=== PATIENT | male | born 1960 | race Caucasian/White ===

== ENCOUNTER 2022-09-14 11:14 | Inpatient (IN) | payer MEDICARE ==
[~2022-09-14] VITALS: Ht 170.2 cm; Wt 70.0 kg
[2022-09-14 11:38] LABS: BASOPHILS # (AUTO) 0.1 X10'3 (0-0.2); BASOPHILS % (AUTO) 0.4 % (0-1); EOSINOPHILS % (AUTO) 0.1 % (0-6); HEMOGLOBIN 11.8 g/dl (14.0-17.9); LYMPHOCYTES # (AUTO) 0.7 X10'3 (1.1-4.8); MEAN CORPUSCULAR HGB CONC 33.1 g/dL (33.0-36.5)
[2022-09-14 11:39] LABS: CLARITY,URINE CLEAR (Clear); GLUCOSE, URINE >=1000 mg/dl (Neg); KETONES,URINE TRACE mg/dl (Neg); LEUKOCYTE ESTERASE ,URINE NEGATIVE (Neg); NITRITES, URINE NEGATIVE (Neg); OCCULT BLOOD,URINE TRACE-INTACT (Neg); PH,URINE 5.5 (4.8-8.0); PROTEIN,URINE NEGATIVE (Neg); UROBILINOGEN,URINE 0.2 E.U/dL (0.2-1.0)
[2022-09-14 11:41] LABS: COLOR,URINE STRAW (Yellow); UA COLLECTION TYPE CLN CATCH MIDSTREAM
[2022-09-14 11:41] LABS: HEMATOCRIT 35.6 % (42.0-52.0); LYMPHOCYTES % (AUTO) 3.2 % (21-51); MEAN CORPUSCULAR HEMOGLOBIN 29.4 PG (27.0-31.0); MEAN CORPUSCULAR VOLUME 88.9 FL (78-98); MONOCYTES # (AUTO) 1.8 X10'3 (0-0.9); MONOCYTES % (AUTO) 8.8 % (2-12); NEUTROPHILS # (AUTO) 17.8 X10'3 (1.8-7.7); NEUTROPHILS % (AUTO) 87.5 % (42-75); PLATELET COUNT 240 X10'3 (140-440); RED CELL DISTRIBUTION WIDTH 14.3 % (11.5-14.5); WHITE BLOOD COUNT 20.3 X10'3 (4.5-11.0)
[2022-09-14 11:46] LABS: BACTERIA,URINE FEW /HPF (Neg); RBC,URINE 0-2 /HPF (0-2); SQUAMOUS EPITHELIAL CELL,UR FEW /LPF (FEW); WBC,URINE 0-4 /HPF (0-4)
[2022-09-14 12:26] LABS: ALANINE AMINOTRANSFERASE 16 U/L (12-78); ALBUMIN 2.7 G/DL (3.4-5.0); ALBUMIN/GLOBULIN RATIO 0.7 (1.1-1.5); ALKALINE PHOSPHATASE 145 IU/L (46-116); ANION GAP 11 (8-16); ASPARTATE AMINO TRANSFERASE 15 U/L (10-37); BILIRUBIN,TOTAL 0.4 MG/DL (0.1-1.0); BLOOD UREA NITROGEN 79 MG/DL (7-18); BUN/CREATININE RATIO 44.4 (5.4-32.0); CALCIUM 8.8 MG/DL (8.5-10.1); CHLORIDE 81 MMOL/L (99-107); CREATININE 1.78 MG/DL (0.60-1.10); LIPASE 284 U/L (73-393); POTASSIUM 4.8 MMOL/L (3.5-5.1); TOTAL CARBON DIOXIDE 27.6 MMOL/L (24-32); TOTAL PROTEIN 6.8 G/DL (6.4-8.2); eGFR 39 ML/MIN
[2022-09-14 12:32] LABS: SODIUM 120 MMOL/L (135-145)
[2022-09-14 12:57] LABS: GLUCOSE 910 MG/DL (70-104)
[2022-09-14] MEDS ORDERED: normal saline 1000ml 1,000 ML IV ONE (13:05)
[2022-09-14] MEDS ORDERED: insulin regular, human 10 units/0.1 ml syringe IV ONE (13:05)
[2022-09-14] MEDS ORDERED: pantoprazole 40mg IV 80 MG in normal saline 100ml IV soln 100 ML IV ONE (13:25)
[2022-09-14 14:05] LABS: APTT 22 SECONDS (22-32)
[2022-09-14 14:16] LABS: ETHANOL < 0.010 GM/DL (0.0-0.010)
[2022-09-14] MEDS ORDERED: NO HOME MEDS (15:14)
[2022-09-14 15:36] LABS: ALANINE AMINOTRANSFERASE 14 U/L (12-78); ALBUMIN 2.7 G/DL (3.4-5.0); ALBUMIN/GLOBULIN RATIO 0.7 (1.1-1.5); ALKALINE PHOSPHATASE 140 IU/L (46-116); ANION GAP 11 (8-16); ASPARTATE AMINO TRANSFERASE 9 U/L (10-37); BILIRUBIN,TOTAL 0.4 MG/DL (0.1-1.0); BLOOD UREA NITROGEN 78 MG/DL (7-18); BUN/CREATININE RATIO 44.8 (5.4-32.0); CHLORIDE 89 MMOL/L (99-107); CREATININE 1.74 MG/DL (0.60-1.10); POTASSIUM 3.7 MMOL/L (3.5-5.1); SODIUM 131 MMOL/L (135-145); TOTAL CARBON DIOXIDE 31.3 MMOL/L (24-32); TOTAL PROTEIN 6.8 G/DL (6.4-8.2); eGFR 40 ML/MIN
[2022-09-14] MEDS ORDERED: magnesium 4gm in 100ml NS 100 ML IV PRN (15:45)
[2022-09-14] MEDS ORDERED: glucagon, human recombinant 1mg kit SUBCUT PRN (15:45)
[2022-09-14] MEDS ORDERED: DEXTROSE 15 GM of carb/4 tabs (each vial/BOTTLE has 4 tablets) PO PRN ×2 (15:45)
[2022-09-14] MEDS ORDERED: mag hydrox/Alum hydrox/simeth 30ml oral suspension PO PRN (15:45)
[2022-09-14] MEDS ORDERED: potassium Cl 20 mEq SR tablet PO PRN ×2 (15:45)
[2022-09-14] MEDS ORDERED: dextrose 50%-water 50ml dispensing syringe IV PRN ×2 (15:45)
[2022-09-14] MEDS ORDERED: HYDROcodone/acetaminophen 5mg/325mg tablet PO PRN (15:45)
[2022-09-14] MEDS ORDERED: potassium Cl 40MEQ/1/2NS 520ml 520 ML IV PRN (15:45)
[2022-09-14] MEDS ORDERED: magnesium hydroxide 30ml (MOM) UD suspension PO PRN (15:45)
[2022-09-14] MEDS ORDERED: MESSAGE TO PHARMACY PO ONE (15:45)
[2022-09-14] MEDS ORDERED: acetaminophen 325mg tablet PO PRN ×2 (15:45)
[2022-09-14 16:04] LABS: GLUCOSE 577 MG/DL (70-104)
[2022-09-14] MEDS ORDERED: CefTRIAXone/D5W-Rocephin 1gm 50 ML IV ONE (16:15)
[2022-09-14] MEDS ORDERED: metoclopramide 5 mg/ml inj IV PRN (16:15)
[2022-09-14] MEDS ORDERED: metoprolol tartrate 1mg/ml inj IV ONE ×2 (16:15→22:35)
[2022-09-14] MEDS ORDERED: vancomycin inj 1,000 MG in normal saline 250ml IV soln 250 ML IV ONE (16:15)
[2022-09-14] MEDS: ondansetron/PF 4mg/2ml inj IV PRN ×2 (16:24→23:02)
[2022-09-14] MEDS: normal saline 1000ml 1,000 ML IV SCH (16:25)
[2022-09-14] MEDS: pantoprazole 40MG/NS 100ML BAG 100 ML IV SCH ×2 (16:25→21:30)
[2022-09-14] MEDS: CefTRIAXone/D5W-Rocephin 1gm 50 ML IV SCH (16:50)
[2022-09-14] MEDS ORDERED: vancomycin/NS 1 GM ADD-VANTAGE 250 ML IV SCH (17:00)
--- NOTE | 2022-09-14 19:20 | NUR ---
PAGED MD CALLE AT THIS TIME REGARDING PT HR 140 A-FIB RVR. PENDING CALL BACK
[2022-09-14] MEDS: docusate sod 100mg capsule PO SCH (19:23)
--- NOTE | 2022-09-14 19:30 | NUR ---
MD CALLE CALLED BACK AND WILL ORDER NA CONLEY FOR PT. Addendum: 09/14/22 at 2234 by TONY CARISSA
[2022-09-14] MEDS: K and/or MAG REPLACEMENT MC SCH (20:00)
[2022-09-14] MEDS: apixaban 5mg tablet PO SCH (20:00)
[2022-09-14] MEDS: metoprolol tartrate 25mg tablet PO SCH (20:41)
[2022-09-14] MEDS: enoxaparin 40mg/0.4ml syringe SQ SCH (20:42)
--- NOTE | 2022-09-14 20:46 | NUR ---
still pending order cabrera Nolen at this time for geraldo agrawal Addendum: 09/14/22 at 2234 by TONY KELLEY* (CORRECTION TO MEDICATION)
[2022-09-14] MEDS ORDERED: diltiazem-NS 100mg/100ml 100 ML IV SCH ×2 (21:05→21:13)
--- NOTE | 2022-09-14 21:05 | NUR ---
MD CALLE WAS PAGED REGARDING NA CONLEY AT THIS TIME, STATED PHONE ORDER FOR RN TO BEGIN YAEL, REQUESTED RN PLACE ORDER. Addendum: 09/14/22 at 2234 by TONY KELLEY * (CPRRECTION TO MEDICATION)
[2022-09-14] MEDS: insulin glargine (Lantus) pen - multi-dose SQ SCH (22:22)
--- NOTE | 2022-09-14 22:32 | NUR ---
SPOKE TO MD CALLE VIA TELEPHONE DUE TO PT NOT RESPONDING TO CARDIZEM DRIP- GAVE V/O FOR 5MG IVP METOPROLOL NOW X1 DOSE. VERIFIFED AND READ BACK.
--- NOTE | 2022-09-15 00:20 | NUR ---
PAGED MD CALLE REGARDING PT HR- UNRESPONSIVE TO ALL TREATEMENT ATTEMTPS. PENDING CALL BACK
[2022-09-15] MEDS ORDERED: amiodarone 200mg tablet PO ONE (00:30)
--- NOTE | 2022-09-15 00:33 | NUR ---
SPOKE TO MD CALLE VIA TELEPHONE AT THIS TIME- MD WILL PLACE FURTHER ORDERS FOR MEDICATION FOR PT HR.
[2022-09-15] MEDS: pantoprazole 40MG/NS 100ML BAG 100 ML IV SCH ×5 (02:19→20:29)
[2022-09-15] MEDS: normal saline 1000ml 1,000 ML IV SCH ×3 (02:20→21:43)
[2022-09-15] MEDS: K and/or MAG REPLACEMENT MC SCH ×2 (06:44→20:19)
[2022-09-15 06:50] LABS: BASOPHILS # (AUTO) 0.1 X10'3 (0-0.2); BASOPHILS % (AUTO) 0.4 % (0-1); EOSINOPHILS % (AUTO) 0.2 % (0-6); HEMOGLOBIN 11.2 g/dl (14.0-17.9); LYMPHOCYTES # (AUTO) 0.9 X10'3 (1.1-4.8); LYMPHOCYTES % (AUTO) 6.1 % (21-51); MEAN CORPUSCULAR HEMOGLOBIN 29.5 PG (27.0-31.0); MEAN CORPUSCULAR VOLUME 86.9 FL (78-98); MEAN PLATELET VOLUME 8.5 FL (7.4-10.4); MONOCYTES # (AUTO) 1.3 X10'3 (0-0.9); NEUTROPHILS # (AUTO) 12.2 X10'3 (1.8-7.7); NEUTROPHILS % (AUTO) 84.3 % (42-75); PLATELET COUNT 208 X10'3 (140-440); RED CELL DISTRIBUTION WIDTH 14.6 % (11.5-14.5); WHITE BLOOD COUNT 14.4 X10'3 (4.5-11.0)
[2022-09-15 06:53] LABS: D-DIMER 1.81 MG/L FEU (0-0.50)
[2022-09-15 07:25] LABS: ALANINE AMINOTRANSFERASE 11 U/L (12-78); ALBUMIN 2.5 G/DL (3.4-5.0); ALBUMIN/GLOBULIN RATIO 0.6 (1.1-1.5); ALKALINE PHOSPHATASE 131 IU/L (46-116); ANION GAP 9 (8-16); ASPARTATE AMINO TRANSFERASE 15 U/L (10-37); BILIRUBIN,TOTAL 0.3 MG/DL (0.1-1.0); BLOOD UREA NITROGEN 63 MG/DL (7-18); BUN/CREATININE RATIO 48.1 (5.4-32.0); CALCIUM 8.5 MG/DL (8.5-10.1); CHLORIDE 96 MMOL/L (99-107); CREATININE 1.31 MG/DL (0.60-1.10); GLUCOSE 369 MG/DL (70-104); MAGNESIUM 2.3 MG/DL (1.5-2.4); POTASSIUM 4.3 MMOL/L (3.5-5.1); SODIUM 132 MMOL/L (135-145); TOTAL CARBON DIOXIDE 27.5 MMOL/L (24-32); TOTAL PROTEIN 6.4 G/DL (6.4-8.2); eGFR 56 ML/MIN
[2022-09-15 07:40] LABS: HEMOGLOBIN A1C 13.2 % (4.5-6.2)
[2022-09-15] MEDS ORDERED: amiodarone 150mg/dext, iso-os 100 ML IV ONE (07:50)
[2022-09-15] MEDS ORDERED: amiodarone/D5 360MG/200ML BAG 200 ML IV SCH (07:50)
[2022-09-15 11:09] LABS: CLARITY,URINE CLEAR (Clear); COLOR,URINE YELLOW (Yellow); GLUCOSE, URINE >=1000 mg/dl (Neg); KETONES,URINE TRACE mg/dl (Neg); LEUKOCYTE ESTERASE ,URINE NEGATIVE (Neg); NITRITES, URINE NEGATIVE (Neg); OCCULT BLOOD,URINE NEGATIVE (Neg); PH,URINE 5.5 (4.8-8.0); PROTEIN,URINE 30 mg/dl (Neg); UROBILINOGEN,URINE 0.2 E.U/dL (0.2-1.0)
[2022-09-15] MEDS: docusate sod 100mg capsule PO SCH ×2 (11:10→20:00)
[2022-09-15] MEDS: metoprolol tartrate 25mg tablet PO SCH ×2 (11:10→20:20)
[2022-09-15] MEDS: apixaban 5mg tablet PO SCH ×2 (11:10→20:19)
[2022-09-15 11:15] LABS: UA COLLECTION TYPE NON-SPECIFIED
[2022-09-15 11:16] LABS: SQUAMOUS EPITHELIAL CELL,UR FEW /LPF (FEW)
[2022-09-15 11:17] LABS: BACTERIA,URINE FEW /HPF (Neg); RBC,URINE 0-2 /HPF (0-2); WBC,URINE 0-4 /HPF (0-4)
[2022-09-15] MEDS: vancomycin/NS 1 GM ADD-VANTAGE 250 ML IV SCH ×2 (11:29→20:34)
[2022-09-15] MEDS ORDERED: metoprolol tartrate 1mg/ml inj IV ONE ×2 (12:40→13:35)
[2022-09-15] MEDS: CefTRIAXone/D5W-Rocephin 1gm 50 ML IV SCH (17:01)
[2022-09-15] MEDS ORDERED: OXYC10TA47 PO (18:07)
[2022-09-15] MEDS ORDERED: INSU100V9 SQ (18:07)
[2022-09-15] MEDS: enoxaparin 40mg/0.4ml syringe SQ SCH (20:21)
[2022-09-15] MEDS: insulin glargine (Lantus) pen - multi-dose SQ SCH (21:37)
[2022-09-15] MEDS: insulin Lispro (HumaLOG) vial - multi-dose SQ SCH (21:39)
[2022-09-15 23:19] VITALS: BP 115/81
[2022-09-16] MEDS: normal saline 1000ml 1,000 ML IV SCH ×3 (00:15→21:38)
[2022-09-16] MEDS: pantoprazole 40MG/NS 100ML BAG 100 ML IV SCH ×5 (01:35→21:00)
[2022-09-16 03:56] VITALS: BP 109/68
[2022-09-16] MEDS ORDERED: metoprolol tartrate 12.5mg (1/2 tablet) PO ONE ×2 (04:05→04:10)
[2022-09-16] MEDS: HYDROcodone/acetaminophen 10/325mg tab PO PRN ×4 (04:26→16:59)
[2022-09-16] MEDS ORDERED: metoprolol tartrate 1mg/ml inj IV ONE (05:25)
[2022-09-16 06:00] VITALS: BP 107/63
[2022-09-16] MEDS: docusate sod 100mg capsule PO SCH ×2 (08:00→19:23)
[2022-09-16] MEDS ORDERED: metoprolol tartrate 12.5mg (1/2 tablet) PO SCH (08:00)
--- NOTE | 2022-09-16 08:15 | NUR ---
PAGER ID: [phone] MESSAGE: [phone], Bridger, can he have diet? thank you, Carmel [phone]
[2022-09-16] MEDS: insulin Lispro (HumaLOG) vial - multi-dose SQ SCH ×3 (08:23→21:12)
[2022-09-16] MEDS: apixaban 5mg tablet PO SCH ×2 (08:26→19:22)
[2022-09-16] MEDS: metoprolol tartrate 25mg tablet PO SCH ×2 (08:28→19:23)
[2022-09-16] MEDS ORDERED: VANCOMYCIN LEVEL IV ONE (08:30)
[2022-09-16 08:54] LABS: BASOPHILS % (AUTO) 0.5 % (0-1); EOSINOPHILS # (AUTO) 0.3 X10'3 (0-0.9); EOSINOPHILS % (AUTO) 3.5 % (0-6); HEMATOCRIT 29.3 % (42.0-52.0); HEMOGLOBIN 9.9 g/dl (14.0-17.9); LYMPHOCYTES # (AUTO) 1.1 X10'3 (1.1-4.8); LYMPHOCYTES % (AUTO) 13.9 % (21-51); MEAN CORPUSCULAR HEMOGLOBIN 30.2 PG (27.0-31.0); MEAN CORPUSCULAR HGB CONC 33.7 g/dL (33.0-36.5); MEAN CORPUSCULAR VOLUME 89.5 FL (78-98); MEAN PLATELET VOLUME 8.6 FL (7.4-10.4); MONOCYTES # (AUTO) 0.9 X10'3 (0-0.9); MONOCYTES % (AUTO) 11.3 % (2-12); NEUTROPHILS # (AUTO) 5.8 X10'3 (1.8-7.7); NEUTROPHILS % (AUTO) 70.8 % (42-75); PLATELET COUNT 181 X10'3 (140-440); RED BLOOD COUNT 3.28 X10'6 (4.70-6.10); RED CELL DISTRIBUTION WIDTH 14.2 % (11.5-14.5); WHITE BLOOD COUNT 8.2 X10'3 (4.5-11.0)
[2022-09-16 09:06] LABS: ALANINE AMINOTRANSFERASE 11 U/L (12-78); ALBUMIN 1.8 G/DL (3.4-5.0); ALBUMIN/GLOBULIN RATIO 0.5 (1.1-1.5); ALKALINE PHOSPHATASE 102 IU/L (46-116); ANION GAP 7 (8-16); ASPARTATE AMINO TRANSFERASE 14 U/L (10-37); BILIRUBIN,TOTAL 0.2 MG/DL (0.1-1.0); BLOOD UREA NITROGEN 31 MG/DL (7-18); BUN/CREATININE RATIO 37.3 (5.4-32.0); CALCIUM 7.8 MG/DL (8.5-10.1); CHLORIDE 103 MMOL/L (99-107); CREATININE 0.83 MG/DL (0.60-1.10); GLUCOSE 158 MG/DL (70-104); MAGNESIUM 2.3 MG/DL (1.5-2.4); POTASSIUM 3.8 MMOL/L (3.5-5.1); SODIUM 133 MMOL/L (135-145); TOTAL CARBON DIOXIDE 22.7 MMOL/L (24-32); TOTAL PROTEIN 5.3 G/DL (6.4-8.2); eGFR > 90 ML/MIN
[2022-09-16] MEDS: vancomycin/NS 1 GM ADD-VANTAGE 250 ML IV SCH ×2 (10:14→21:33)
[2022-09-16 11:07] VITALS: BP 103/78
[2022-09-16] MEDS: K and/or MAG REPLACEMENT MC SCH (11:24)
--- NOTE | 2022-09-16 14:26 | NUR ---
DM Consult: Pt admit DX hyperglycemic hyperosmolar nonketotic syndrome now resolved, insulin-dependent DM A1C 13.2%, hyponatremia secondary to dehydration, BLE superficial scabs/callus wounds, and afib w/ RVR per EMR. Glu currently 158mg/dl down from 910mg/dl on admit. Pt hx N/V 4 days [employer] both reports not using insulin for a few weeks [employer] since doesn't like sticking himself and also only not using insulin only while sick [employer] per EMR. Pt reports eats [employer] takeout multiple times per day per DO note. Of note, pt only takes 10 units Lantus WB for daily Glu coverage w/ no other meal coverage per pharmacy. Pt seen by RD at bedside for written/verbal DM diet ed w/ RD contact information provided. Pt reports has taken insulin per rx no issues receiving refills; unaware of A1C significance. RD educated pt on A1C meaning and reviewed sick day diet guidelines at well; encouraged pt to contact dietitian's office if further diet questions/concerns. RD encouraged pt to f/u w/ PCP regarding optimizing daily Glu coverage since only takes 10 units Lantus AM w/ no further meal coverage and is insulin-dependent. Visualized 0% first solid meal WL today during RD visit; pt reports slight stomach discomfort. LBM 09/14 per EMR. Will monitor for further nutrition intervention needs this admit. Rec: 1. continue carb controlled/heart healthy diet 2. monitor for PO trends and ONS needs 3. routine bowel care 4. scaled wt this admit; subsequent weekly wts Addendum: 09/16/22 at [address] Amended: Links added.
[2022-09-16] MEDS: CefTRIAXone/D5W-Rocephin 1gm 50 ML IV SCH (16:17)
[2022-09-16 16:23] VITALS: BP 100/56
--- NOTE | 2022-09-16 17:52 | NUR ---
Pt predinner glucose 217, pt was not covered with insulin at lunch, would recommend leaving pt on level 3 at this time, will continue to monitor
[2022-09-16 18:00] VITALS: BP 129/81
--- NOTE | 2022-09-16 18:40 | NUR ---
Patient in room PCU 3020. I have received report from Carmel and had the opportunity to ask questions and assume patient care. Drips verified. Pt in no acute distress at handoff.
[2022-09-16] MEDS: insulin glargine (Lantus) pen - multi-dose SQ SCH (21:16)
[2022-09-16 22:00] VITALS: BP 133/52
[2022-09-17] MEDS: K and/or MAG REPLACEMENT MC SCH ×2 (00:43→08:00)
[2022-09-17] MEDS: pantoprazole 40MG/NS 100ML BAG 100 ML IV SCH ×2 (01:05→08:29)
[2022-09-17] MEDS: HYDROcodone/acetaminophen 10/325mg tab PO PRN ×2 (01:42→16:17)
[2022-09-17 02:00] VITALS: BP 111/57
[2022-09-17 06:00] VITALS: BP 97/41
--- NOTE | 2022-09-17 06:56 | NUR ---
Problems reprioritized. Patient report given, questions answered & plan of care reviewed with Carmel. Mk verified. Pt in no acute distress at time of handoff.
[2022-09-17] MEDS: docusate sod 100mg capsule PO SCH ×2 (08:00→08:23)
[2022-09-17] MEDS ORDERED: metoprolol tartrate 1mg/ml inj IV STA (08:10)
[2022-09-17 08:18] LABS: BASOPHILS # (AUTO) 0.1 X10'3 (0-0.2); BASOPHILS % (AUTO) 0.9 % (0-1); EOSINOPHILS # (AUTO) 0.5 X10'3 (0-0.9); EOSINOPHILS % (AUTO) 7.9 % (0-6); HEMATOCRIT 27.6 % (42.0-52.0); HEMOGLOBIN 9.2 g/dl (14.0-17.9); LYMPHOCYTES # (AUTO) 1.2 X10'3 (1.1-4.8); LYMPHOCYTES % (AUTO) 19.1 % (21-51); MEAN CORPUSCULAR HEMOGLOBIN 29.7 PG (27.0-31.0); MEAN CORPUSCULAR HGB CONC 33.3 g/dL (33.0-36.5); MEAN CORPUSCULAR VOLUME 89.2 FL (78-98); MEAN PLATELET VOLUME 8.5 FL (7.4-10.4); MONOCYTES # (AUTO) 0.8 X10'3 (0-0.9); MONOCYTES % (AUTO) 12.3 % (2-12); NEUTROPHILS # (AUTO) 3.7 X10'3 (1.8-7.7); NEUTROPHILS % (AUTO) 59.8 % (42-75); PLATELET COUNT 188 X10'3 (140-440); RED CELL DISTRIBUTION WIDTH 14.5 % (11.5-14.5); WHITE BLOOD COUNT 6.2 X10'3 (4.5-11.0)
[2022-09-17] MEDS: vancomycin/NS 1 GM ADD-VANTAGE 250 ML IV SCH (08:23)
[2022-09-17] MEDS: apixaban 5mg tablet PO SCH (08:24)
[2022-09-17] MEDS: metoprolol tartrate 25mg tablet PO SCH ×4 (08:24→13:29)
[2022-09-17 08:35] LABS: ALANINE AMINOTRANSFERASE 13 U/L (12-78); ALBUMIN 1.9 G/DL (3.4-5.0); ALBUMIN/GLOBULIN RATIO 0.6 (1.1-1.5); ALKALINE PHOSPHATASE 93 IU/L (46-116); ANION GAP 9 (8-16); ASPARTATE AMINO TRANSFERASE 12 U/L (10-37); BILIRUBIN,TOTAL 0.2 MG/DL (0.1-1.0); BLOOD UREA NITROGEN 22 MG/DL (7-18); BUN/CREATININE RATIO 26.5 (5.4-32.0); CALCIUM 7.7 MG/DL (8.5-10.1); CHLORIDE 104 MMOL/L (99-107); CREATININE 0.83 MG/DL (0.60-1.10); GLUCOSE 118 MG/DL (70-104); POTASSIUM 3.8 MMOL/L (3.5-5.1); SODIUM 135 MMOL/L (135-145); TOTAL CARBON DIOXIDE 22.3 MMOL/L (24-32); eGFR > 90 ML/MIN
[2022-09-17] MEDS: insulin Lispro (HumaLOG) vial - multi-dose SQ SCH (09:08)
[2022-09-17] MEDS: ondansetron/PF 4mg/2ml inj IV PRN (09:13)
[2022-09-17 11:53] VITALS: BP 107/71
[2022-09-17] MEDS: normal saline 1000ml 1,000 ML IV SCH (13:24)
[2022-09-17 15:43] VITALS: BP 137/73
[2022-09-17] MEDS: CefTRIAXone/D5W-Rocephin 1gm 50 ML IV SCH (16:17)
--- NOTE | 2022-09-17 16:26 | NUR ---
Dr Yepez PAGER ID: [phone] MESSAGE: May, Bridger, wants to go home, Said he would wait to talk with you, Thank you, Carmel Mahoney Addendum: 09/17/22 at 1632 by Carmel Brewer - Travelalf RN Dr Yepez at bedside, discussed with patient the necessity to stay one more night ti make sure glucose and heart rate is stable. Pt agreed to stay tonight.
--- NOTE | 2022-09-17 17:05 | NUR ---
PAGER ID: [phone] MESSAGE: May Sparks. Pt now says he is going home. (Don't shoot the messenger ), ANASTASIIA Burt [phone] Addendum: 09/17/22 at 1748 by Carmel Brewer - Traveler RN Dr Yepez returned to pt bedside to discuss the severe health risks of leaving AMA, pt insisted he was going home and "nothing is going to happen to me" "I'll be fine". Dr Yepez and patient signed the AMA form. IV discontinued, nurse monitoring removed. Pt requested staff call him a cab, pt was given a phone to call a cab for himself. Pt had difficulty walking out, 1 RN wheeled him to entrance in wheel chair.
[2022-09-17] MEDS ORDERED: METO50TA16 PO (17:37)
[2022-09-17] MEDS ORDERED: APIX5TAB3 PO (17:37)
[2022-09-18] MEDS ORDERED: pantoprazole 40mg Tablet.DR PO SCH (07:30)
== END 2022-09-17 17:57 | disposition left against medical advice (07) | DRG 871 ==
LOC: ER 11:15 → ED HOLD 16:20 → PCU 3S 09-15 22:30
PROVIDERS: ADMIT Family Medicine; ATTEND Family Medicine
DX: A41.9 Sepsis, unspecified organism (principal); E11.00 Type 2 diabetes mellitus with hyperosmolarity without nonketotic hyperglycemic-hyperosmolar coma (NKHHC); E87.1 Hypo-osmolality and hyponatremia; I48.92 Unspecified atrial flutter; K92.0 Hematemesis; N17.9 Acute kidney failure, unspecified; E86.0 Dehydration; I25.10 Atherosclerotic heart disease of native coronary artery without angina pectoris; K42.9 Umbilical hernia without obstruction or gangrene; K44.9 Diaphragmatic hernia without obstruction or gangrene; N20.0 Calculus of kidney; I48.91 Unspecified atrial fibrillation; Z53.29 Procedure and treatment not carried out because of patient's decision for other reasons; Z79.01 Long term (current) use of anticoagulants; Z79.4 Long term (current) use of insulin; Z79.899 Other long term (current) drug therapy; Z82.3 Family history of stroke; I25.2 Old myocardial infarction; Z86.73 Personal history of transient ischemic attack (TIA), and cerebral infarction without residual deficits; Z87.891 Personal history of nicotine dependence; Z95.1 Presence of aortocoronary bypass graft; Z91.199 Patient's noncompliance with other medical treatment and regimen due to unspecified reason; Y93.89 Activity, other specified; Y92.89 Other specified places as the place of occurrence of the external cause; Y99.8 Other external cause status; S80.922A Unspecified superficial injury of left lower leg, initial encounter; S80.921A Unspecified superficial injury of right lower leg, initial encounter; L08.9 Local infection of the skin and subcutaneous tissue, unspecified
CPT/HCPCS: 36415; 71045; 74176; 80053; 80202; 80320; 81001; 82948; 83036; 83690; 83735; 84145; 84439; 84443; 84484; 85025; 85379; 85610; 85730; 86885; 86900; 86901; 87081; 93005; 93306; 96361; 96365; 96375; 99285; A4349; A4649; A6446; A6449; C9113; G0378; J0282; J0696; J1650; J1815; J2405; J3370; J3490; J7030